=== PATIENT | female | born 1945 | race Caucasian/White ===

== ENCOUNTER 2023-02-04 15:52 | Emergency (ER) | payer MEDICARE, SELFPAY ==
[2023-02-04] VITALS (8 sets, daily range): BP systolic 150–171; BP diastolic 75–89; PULSE 65–71; RESP 18; TEMP 36.2; O2SAT 97–99; BMI 30.2
--- NOTE | 2023-02-04 16:39 | CRLHL7_ITS ---
For Patients: As a result of the Century Cures Act, medical imaging exams and procedure reports are released immediately into your electronic medical record. You may view this report before your referring provider. If you have questions, please contact your health care provider. INDICATION: Dizziness. TECHNIQUE: Noncontrast CT images acquired through the brain. COMPARISON: None. FINDINGS: Prominence of the ventricles and sulci compatible with mild diffuse cerebral volume loss. No mass effect or midline shift. The trevino-white differentiation is maintained. No acute intracranial hemorrhage or pathologic extra-axial fluid collection. Scattered hypoattenuation in the supratentorial white matter, suggestive of mild chronic microvascular ischemic changes. Atherosclerotic calcifications in the carotid siphons. The globes are symmetric. The calvarium is intact. The visualized paranasal sinuses are clear. Trace right mastoid fluid. IMPRESSION: No acute intracranial hemorrhage or mass effect. Please note that all CT scans at this facility use dose modulation, iterative reconstruction, and/or weight-based dosing when appropriate to reduce radiation dose to as low as reasonably achievable. Dictated by Jcarlos Doe MD @ 02/04/2023 5:54:52 PM (Electronically Signed)
--- NOTE | 2023-02-04 16:44 | ED_ITS ---
HPI - Dizziness General Date Seen: 02/04/23 Chief Complaint: Dizziness/Vertigo Stated Complaint: Vertigo Time Seen by Provider: 02/04/23 15:56 Source: patient Mode of arrival: ambulatory Limitations: no limitations History of Present Illness HPI Narrative: Patient is a very nice 78-year-old female presents here with her for evaluation of dizziness she woke up this morning, with dizziness whenever she moves her head or changes position, she says it has stayed about the same, has not really changed at all, she will sick quietly, and she does not have any nausea dizziness at all, she does not describe any headache, double vision, numbness and tingling or weakness, speech issues, or any other stroke-like symptoms. He has never before had this but does have a history of chronic worsening hearing. Wears hearing aids. She did not take any medications for this, she called her doctor who told her to come to urgent care. They made exactly decision as Urgent Care was closing, to come here. She has not had any problems walking but feels better when she holds her , she thinks this is just maybe a support type mechanism. No vomiting, no fevers chills, not feeling otherwise sick, with cold-like symptoms. MD elicited complaint: dizziness Onset (ago): hour(s) Timing: awoke with symptoms Severity: moderate Description: sense of movement History of similar symptoms: No Exacerbating factors: movement/ambulation and change in body position Relieving factors: remaining still and keeping eyes closed Associated symptoms: denies other symptoms Related Data Home Medications Medication Instructions Recorded Confirmed Synthroid 02/04/23 atenolol 02/04/23 gabapentin 02/04/23 pravastatin 02/04/23 Allergies Allergy/AdvReac Type Severity Reaction Status Date / Time ampicillin Allergy Verified 02/04/23 15:58 Review of Systems Status of ROS: Reports: 10 or more systems reviewed and unremarkable except as noted in History and below PFSH PFS Social History Smoking Status: Never smoker How often do you have a drink containing alcohol: monthly or less How many standard drinks containing alcohol do you have on a typical day: 3 or 4 AUDIT-C Alcohol total score: 2 Non-prescribed substance use: denies use service: No Exam Narrative: Exam Narrative: On examination in room 7 she is in no apparent distress she is pleasant and alert. Speaking to me normally, nontoxic with a GCS of 15/15, her stroke scale is 0. Pupils are equal round reactive to light, she has some beating nystagmus to the right notable. For beats. Left side is normal. Her TMs are normal bilaterally, after she removes her hearing aids cranial nerves 3-12 are normal, fundi are normal. She is able to whistle for me. Carotid upstrokes are equal bilaterally with absence of bruits, JVP is flat, reproduction of her symptoms by moving her head left to right is notable. Chest is clear bilaterally with no wheezes or crackles, heart sounds no clicks murmurs or gallops her abdomen is soft, peripheral examination shows normal strength in her upper and lower extremities both proximally distally, she is right-hand dominant, fine motor movements fingers nose testing are normal, heel-valdivia testing is normal, head impulse test is abnormal, to the right, Const: Vital Signs, click to edit/add: Vital Signs - 24 hr 02/04/23 15:56 02/04/23 16:48 02/04/23 17:05 Temperature 97.2 F L Pulse Rate 71 71 Pulse Rate [Right Pulse Oximeter] 71 Respiratory Rate 18 Blood Pressure Blood Pressure [Ri ght Upper Arm] 171/75 H Pulse Oximetry 99 98 99 Oxygen Delivery Me thod Room Air 02/04/23 17:30 02/04/23 17:31 02/04/23 17:32 Temperature Pulse Rate 68 71 70 Pulse Rate [Right Pulse Oximeter] Respiratory Rate Blood Pressure 150/88 H Blood Pressure [Ri ght Upper Arm] Pulse Oximetry 97 97 97 Oxygen Delivery Me thod 02/04/23 18:01 02/04/23 18:02 Temperature Pulse Rate 69 65 Pulse Rate [Right Pulse Oximeter] Respiratory Rate Blood Pressure 152/89 H Blood Pressure [Ri ght Upper Arm] Pulse Oximetry 97 97 Oxygen Delivery Me thod Documenting provider has reviewed patient's vital signs: yes Course Course Hospital Course: Patient is feeling much better, I reviewed her CT scan with her, did not show any acute changes, she is able to walk on her road test was negative. Given the response to treatment, I think it is low likelihood this is stroke related, more likely peripheral vertigo more likely BPH. A small amount of meclizine along with Ativan was will be used. I will have her follow up with her primary care physician if ongoing signs and symptoms, consideration of the taught Lauro maneuvers. Vital Signs Vital signs: Initial Vital Signs Temperature 97.2 F L 02/04/23 15:56 Temperature Source Temporal Artery Scan 02/04/23 15:56 Pulse Rate 71 02/04/23 15:56 Respiratory Rate 18 02/04/23 15:56 Blood Pressure 171/75 H 02/04/23 15:56 Blood Pressure Mean 107 H 02/04/23 15:56 Blood Pressure Position Sitting 02/04/23 15:56 Pulse Oximetry 99 02/04/23 15:56 Oxygen Delivery Method Room Air 02/04/23 15:56 Vital Signs Temperature 97.2 F L 02/04/23 15:56 Pulse Rate 71 02/04/23 15:56 Respiratory Rate 18 02/04/23 15:56 Blood Pressure 171/75 H 02/04/23 15:56 Pulse Oximetry 99 02/04/23 15:56 Oxygen Delivery Method Room Air 02/04/23 15:56 Temperature 97.2 F L 02/04/23 15:56 Pulse Rate 65 02/04/23 18:02 Respiratory Rate 18 02/04/23 15:56 Blood Pressure 152/89 H 02/04/23 18:01 Pulse Oximetry 97 02/04/23 18:02 Oxygen Delivery Method Room Air 02/04/23 15:56 MDM - Dizziness MDM Narrative Medical decision making narrative: Life-threatening differential diagnosis considered include, CVA, other differential diagnosis include BPPV, labyrinthitis, Meniere's disease, vestibular neuronitis, migraine, multiple sclerosis, otitis media, viral syndrome as well as other etiologies Medical Records Attestation: I reviewed the patient's medical records. Lab Data Attestation: I reviewed the patient's lab results. Labs: Lab Results 02/04/23 02/04/23 Range/Units 17:02 17:25 WBC 7.41 (4.50-11.00) K/uL RBC 4.74 (4.00-5.20) m/uL Hgb 14.3 (12.0-16.0) gm/dL Hct 43.2 (33.0-51.0) % MCV 91 (80-100) fL MCH 30 (26-34) pg MCHC 33 (32-36) gm/dL RDW Coeff of Lorie 11.8 (11.5-15.5) % Plt Count 216 (140-440) K/uL Neut % (Auto) 72.1 H (42.0-72.0) % Lymph % (Auto) 20.1 (20-44) % [place] % (Auto) 5.5 (0.0-11.0) % Eos % (Auto) 0.9 (0.0-7.0) % Baso % (Auto) 0.3 (0.0-3.0) % Neut # (Auto) 5.30 (1.7-7.0) K/uL Lymph # (Auto) 1.49 (0.90-2.90) K/uL [place] # (Auto) 0.40 (0.00-0.90) K/UL Eos # (Auto) 0.07 (0.00-0.50) K/uL Baso # (Auto) 0.02 (0.00-0.30) K/uL Abs Immat Gran (auto) 0.08 (0.00-0.30) K/uL Imm/Tot Granulo (auto) 1.1 % Sodium 140 (135-149) mmol/L Potassium 4.1 (3.6-5.1) mmol/L Chloride 104 (96-114) mmol/L Carbon Dioxide 29 (20-32) mmol/L BUN 21 (7-30) mg/dL Creatinine 0.7 (0.5-1.5) mg/dL Estimated Creat Clear 36.08 Estimated GFR 88 ml/min Glucose 109 (60-115) mg/dL Calcium 9.9 (8.4-10.6) mg/dL Urine Color Yellow (Yellow) Urine Appearance Clear (Clear) Urine pH 7.0 (5.0-8.5) Ur Specific [place] 1.015 (1.000-1.030) Urine Protein Negative (Negative) Urine Glucose (UA) Negative (Negative) Urine Ketones Negative (Negative) Urine Blood 1+ A (Negative) Urine Nitrite Negative (Negative) Urine Bilirubin Negative (Negative) Urine Urobilinogen 0.2 (0.2-1.0) Ur Leukocyte Esterase Negative (Negative) Urine RBC 0-2 (0-2) Urine WBC 0-2 (0-5) Ur Squamous Epith Cells Few (None-Few) Urine Bacteria None (None) Imaging Data CT scan - head: My impression: No acute changes Radiologist's impression: Patient: ORI TRIPP Facility: [facility] Site . Site : 1945 Study: CT Head WO-02/04/2023 5:07:44 PM Ordering Physician: Yamilex Villatoro Final Report: INDICATION: Dizziness. TECHNIQUE: Noncontrast CT images acquired through the brain. COMPARISON: None. FINDINGS: Prominence of the ventricles and sulci compatible with mild diffuse cerebral volume loss. No mass effect or midline shift. The trevino-white differentiation is maintained. No acute intracranial hemorrhage or pathologic extra-axial fluid collection. Scattered hypoattenuation in the supratentorial white matter, suggestive of mild chronic microvascular ischemic changes. Atherosclerotic calcifications in the carotid siphons. The globes are symmetric. The calvarium is intact. The visualized paranasal sinuses are clear. Trace right mastoid fluid. IMPRESSION: No acute intracranial hemorrhage or mass effect. Please note that all CT scans at this facility use dose modulation, iterative reconstruction, and/or weight-based dosing when appropriate to reduce radiation dose to as low as reasonably achievable. 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 I will give you a small supply of the lorazepam also that she can use, avoidance of alcohol for the next week. Return here if increasing nausea vomiting or atypical symptoms of a stroke which we discussed. Avoidance of ladders is strongly suggest, follow-up with primary care if ongoing longer than a week. Activity Level: Light activity Prescriptions: No Action atenolol gabapentin Synthroid pravastatin Follow Up/Referrals: Elidia Tabares MD [Primary Care Provider] - Stand Alone Forms: [employer] Info Instructions
[2023-02-04 17:16] LABS: Appearance Urine Clear (Clear); Bilirubin Urine Negative (Negative); Blood Urine 1+ (Negative); Color Urine Yellow (Yellow); Glucose Urine Negative (Negative); Ketones Urine Negative (Negative); Leukocyte Esterase Urine Negative (Negative); Nitrite Urine Negative (Negative); Protein Urine Negative (Negative); Specific Gravity Urine 1.015 (1.000-1.030); Urobilinogen Urine 0.2 (0.2-1.0)
[2023-02-04 17:26] LABS: RBC Urine 0-2 (0-2); Squamous Epithelial Cell Urine Few (None-Few); WBC Urine 0-2 (0-5)
[2023-02-04] MEDS: MECLIZINE HCL 25 MG TABLET PO (17:31)
[2023-02-04] MEDS: LORazepam 0.5 MG TABLET PO (17:31)
[2023-02-04 17:32] LABS: Basophils Absolute Auto 0.02 K/uL (0.00-0.30); Basophils Percent Auto 0.3 % (0.0-3.0); Eosinophils Absolute Auto 0.07 K/uL (0.00-0.50); Eosinophils Percent Auto 0.9 % (0.0-7.0); Hematocrit 43.2 % (33.0-51.0); Hemoglobin* 14.3 gm/dL (12.0-16.0); Immature Granulocytes Abs Auto 0.08 K/uL (0.00-0.30); Immature Granulocytes Pct Auto 1.1 %; Lymphocytes Absolute Auto 1.49 K/uL (0.90-2.90); Lymphocytes Percent Auto 20.1 % (20-44); Mean Corpuscular HGB Conc 33 gm/dL (32-36); Mean Corpuscular Hemoglobin 30 pg (26-34); Mean Corpuscular Volume 91 fL (80-100); Monocytes Percent Auto 5.5 % (0.0-11.0); Neutrophils Percent Auto 72.1 % (42.0-72.0); Platelet Count* 216 K/uL (140-440); RDW Coefficient of Variation % 11.8 % (11.5-15.5); Red Blood Count 4.74 m/uL (4.00-5.20); White Blood Count* 7.41 K/uL (4.50-11.00)
[2023-02-04 17:39] LABS: Slide Review Reflex No
[2023-02-04 17:45] LABS: Chloride* 104 mmol/L (96-114)
[2023-02-04 17:46] LABS: Potassium* 4.1 mmol/L (3.6-5.1); Sodium* 140 mmol/L (135-149)
[2023-02-04 17:48] LABS: Carbon Dioxide* 29 mmol/L (20-32); Creatinine* 0.7 mg/dL (0.5-1.5); Est. Creatinine Clearance* 36.08; Estimated Glomerular Filt Rate 88 ml/min
[2023-02-04 17:49] LABS: Blood Urea Nitrogen* 21 mg/dL (7-30); Calcium* 9.9 mg/dL (8.4-10.6); Glucose* 109 mg/dL (60-115)
--- NOTE | 2023-02-04 18:15 | ED.NURSE ---
pt was able to ambulate to and from the bathroom without assistance, pt denies ambulation causing changes from baseline.
== END 2023-02-04 18:40 | disposition home or self-care (01) ==
PROVIDERS: Emergency Provider Family Medicine; PCP Family Medicine
DX: R42 Dizziness and giddiness (principal)
CPT/HCPCS: 36415; 70450; 80048; 81001; 85025; 99284; A9270

== ENCOUNTER 2023-11-11 07:26 | Outpatient (CLI) | payer MEDICARE, SELFPAY | END 2023-11-11 07:27 | disposition home or self-care (01) | LOC: INJ CL 07:27 | PROVIDERS: PCP Family Medicine; Visit Provider Family Medicine | DX: M54.16 Radiculopathy, lumbar region (principal); M51.36 Other intervertebral disc degeneration, lumbar region | CPT/HCPCS: 64483; J1100; Q9966 ==

== ENCOUNTER 2024-02-09 08:30 | Outpatient (RCR) | payer MEDICARE, SELFPAY | END 2024-06-08 23:59 | disposition home or self-care (01) | PROVIDERS: PCP Family Medicine; Visit Provider Family Medicine | DX: M48.062 Spinal stenosis, lumbar region with neurogenic claudication (principal); M70.62 Trochanteric bursitis, left hip; Z98.1 Arthrodesis status; M25.552 Pain in left hip; G89.29 Other chronic pain; M76.02 Gluteal tendinitis, left hip; M54.16 Radiculopathy, lumbar region; G14 Postpolio syndrome; Z51.89 Encounter for other specified aftercare | CPT/HCPCS: 97012; 97110; 97140; 97162; 97164 ==